=== PATIENT | male | born 1950 | race African-American/Black ===

== ENCOUNTER 2018-05-15 22:51 | Emergency (ER) | payer MEDICARE, OTHER ==
[~2018-05-15] VITALS: Ht 185.4 cm; Wt 90.9 kg
[2018-05-15] MEDS ORDERED: LISI-662 PO (23:06)
[2018-05-15] MEDS ORDERED: MULT1TAB70 PO (23:06)
[2018-05-15] MEDS ORDERED: ASPI81 PO (23:06)
[2018-05-15] MEDS ORDERED: AMLO-511 PO (23:06)
[2018-05-15 23:13] LABS: GLUCOSE,POINT OF CARE 129 MG/DL (70-110)
[2018-05-16 00:02] LABS: APPEARANCE,URINE CLEAR (CLEAR); BILIRUBIN,URINE NEGATIVE (NEGATIVE); GLUCOSE, URINE (UA) NEGATIVE (NEGATIVE); KETONES,URINE TRACE mg/dL (NEGATIVE); LEUKOCYTE ESTERASE ,URINE NEGATIVE (NEGATIVE); NITRATE,URINE NEGATIVE (NEGATIVE); OCCULT BLOOD,URINE LARGE (NEGATIVE); PROTEIN,URINE NEGATIVE (NEGATIVE); UROBILINOGEN,URINE 0.2 mg/dL (<=1.0)
[2018-05-16 00:09] LABS: RBC,URINE >100 /HPF (0-2)
[2018-05-16 00:10] LABS: BACTERIA,URINE None Seen /HPF (None Seen); SQUAMOUS EPITHELIAL CELL,UR None Seen /LPF (None Seen); WBC,URINE None Seen /HPF (0-5)
[2018-05-16] MEDS ORDERED: TAMSULOSIN HCL 0.4 MG CAPSULE PO ONE (00:30)
[2018-05-16 01:28] VITALS: BP 127/88
== END 2018-05-16 01:32 | disposition home or self-care (01) ==
LOC: EMS 22:53
DX: N40.1 Benign prostatic hyperplasia with lower urinary tract symptoms (principal); R33.8 Other retention of urine; N13.8 Other obstructive and reflux uropathy; I10 Essential (primary) hypertension; E11.9 Type 2 diabetes mellitus without complications; Z79.82 Long term (current) use of aspirin
CPT/HCPCS: 51702